=== PATIENT | male | born 1995 | race Caucasian/White ===

== ENCOUNTER 2021-11-27 12:32 | Emergency (ER) | payer SELFPAY ==
[~2021-11-27] VITALS: Ht 175.3 cm; Wt 77.0 kg
[2021-11-27 13:41] VITALS: BP 130/75
[2021-11-27 14:31] LABS: CLARITY URINE CLEAR (CLEAR); COLOR URINE YELLOW (YELLOW); KETONES URINE NEGATIVE (NEGATIVE); LEUKOCYTE ESTERASE URINE NEGATIVE (NEGATIVE); NITRITE URINE NEGATIVE (NEGATIVE); OCCULT BLOOD URINE 1+ (NEGATIVE); PROTEIN URINE NEGATIVE (NEGATIVE); UROBILINOGEN URINE 0.2 E.U./dL (0.2-1.0)
== END 2021-11-27 17:36 | disposition home or self-care (01) ==
LOC: ER 12:32
DX: R10.31 Right lower quadrant pain (principal); R31.9 Hematuria, unspecified
CPT/HCPCS: 76770; 81003; 99284